=== PATIENT | female | born 1995 | race Caucasian/White ===

== ENCOUNTER 2016-08-05 17:09 | Outpatient (CLI) | payer MEDICAID | END 2016-08-05 17:10 | disposition home or self-care (01) | DX: Z36 Encounter for antenatal screening of mother (principal) ==

== ENCOUNTER 2016-08-15 07:25 | Outpatient (CLI) | payer MEDICAID | END 2016-08-15 07:26 | disposition home or self-care (01) | DX: Z36 Encounter for antenatal screening of mother (principal); O44.42 Low lying placenta NOS or without hemorrhage, second trimester; Z3A.20 20 weeks gestation of pregnancy; O36.8920 Maternal care for other specified fetal problems, second trimester, not applicable or unspecified ==